=== PATIENT | female | born 1960 | race Caucasian/White ===

== ENCOUNTER 2024-12-09 11:39 | Emergency (ER) | payer OTHER ==
[~2024-12-09] VITALS: Ht 157.4 cm; Wt 71.7 kg
[2024-12-09] MEDS ORDERED: Synthroid,Levo88 MCG PO (11:48)
[2024-12-09] MEDS ORDERED: CITALOPRAM20 MG PO (11:48)
[2024-12-09] MEDS ORDERED: AMOX-CLAV 875-1 EACH PO (12:00)
[2024-12-09] MEDS ORDERED: Bacitracin Zinc/Neomycin/Pol 0.9 GM PACKET T ONE (12:05)
== END 2024-12-09 12:45 | disposition home or self-care (01) ==
LOC: ED 11:39
DX: S61.210A Laceration without foreign body of right index finger without damage to nail, initial encounter (principal); Z88.1 Allergy status to other antibiotic agents; Z79.899 Other long term (current) drug therapy; W54.0XXA Bitten by dog, initial encounter; Y93.89 Activity, other specified; Y92.89 Other specified places as the place of occurrence of the external cause; Y99.0 Civilian activity done for income or pay

== ENCOUNTER 2024-12-14 11:38 | Emergency (ER) | payer OTHER ==
[~2024-12-14] VITALS: Ht 157.4 cm; Wt 71.7 kg
[~2024-12-14 11:38] MED LIST: AMOX-CLAV 875-1 EACH PO; CITALOPRAM20 MG PO; Synthroid,Levo88 MCG PO
[2024-12-14] MEDS ORDERED: Rabies Vaccine 1 ML VIAL IM ONE (12:05)
[2024-12-14] MEDS ORDERED: Rabies Immune Globulin 300 UNIT/2 ML VIAL IM ONE (12:05)
[2024-12-14] MEDS ORDERED: Rabies Immune Globulin 150O UNIT/10 ML IM ONE (12:20)
== END 2024-12-14 13:17 | disposition home or self-care (01) ==
LOC: ED 11:38
DX: S61.250D Open bite of right index finger without damage to nail, subsequent encounter (principal); Z23 Encounter for immunization; W54.0XXD Bitten by dog, subsequent encounter

== ENCOUNTER 2024-12-17 11:26 | Emergency (ER) | payer OTHER ==
[~2024-12-17] VITALS: Ht 157.4 cm; Wt 65.8 kg
[2024-12-17] MEDS ORDERED: Rabies Vaccine 1 ML VIAL IM ONE (12:25)
== END 2024-12-17 18:04 | disposition home or self-care (01) ==
LOC: ED 11:26
DX: S61.211A Laceration without foreign body of left index finger without damage to nail, initial encounter (principal); W54.0XXA Bitten by dog, initial encounter; Y93.89 Activity, other specified; Y92.89 Other specified places as the place of occurrence of the external cause; Y99.8 Other external cause status

== ENCOUNTER 2024-12-21 09:29 | Emergency (ER) | payer OTHER ==
[~2024-12-21] VITALS: Ht 157.4 cm; Wt 68.9 kg
[2024-12-21] MEDS ORDERED: Rabies Vaccine 1 ML VIAL IM ONE (09:50)
== END 2024-12-21 09:48 | disposition home or self-care (01) ==
LOC: ED 09:29
DX: Z23 Encounter for immunization (principal); Z88.8 Allergy status to other drugs, medicaments and biological substances; Z90.710 Acquired absence of both cervix and uterus; Z90.49 Acquired absence of other specified parts of digestive tract

== ENCOUNTER 2024-12-28 09:05 | Emergency (ER) | payer OTHER ==
[~2024-12-28] VITALS: Ht 157.4 cm; Wt 68.9 kg
[2024-12-28] MEDS ORDERED: Rabies Vaccine 1 ML VIAL IM ONE (09:20)
== END 2024-12-28 09:37 | disposition home or self-care (01) ==
LOC: ED 09:05
DX: S61.250D Open bite of right index finger without damage to nail, subsequent encounter (principal); Z23 Encounter for immunization; Z88.1 Allergy status to other antibiotic agents; Z79.899 Other long term (current) drug therapy; W54.0XXD Bitten by dog, subsequent encounter